=== PATIENT | female | born 1985 | race Caucasian/White ===

== ENCOUNTER → 2016-10-17 | Outpatient (CLI) | payer OTHER ==
[~2016-10-17] MED LIST: MULT-506 PO
[2016-10-17 09:53] LABS: ALT/SGPT 24 U/L (12-78); BLOOD UREA NITROGEN 12 mg/dl (7-18); BUN/CREATININE RATIO 17.8 (10-20); CALCIUM 8.9 mg/dl (8.5-10.1); CARBON DIOXIDE 28 mmol/L (21-32); CHLORIDE 106 mmol/L (98-107); CHOLESTEROL 171 mg/dl (0-200); CREATININE 0.67 mg/dl (0.60-1.20); GLUCOSE 83 mg/dl (70-99); POTASSIUM 4.2 mmol/L (3.5-5.1); SODIUM 139 mmol/L (136-145); TRIGLYCERIDES 56 mg/dl (0-150); VERY LOW DENSITY LIPOPROT CALC 11 mg/dl
[2016-10-17 09:56] LABS: ALB/GLOB RATIO 1.1 (0.9-2); ALKALINE PHOSPHATASE 79 U/L (45-117); AST/SGOT 14 U/L (15-37); CHOLESTEROL/HDL RATIO 2.6; HDL CHOLESTEROL 67 mg/dl; LDL CHOLESTEROL CALCULATED 93 mg/dl
== END | disposition home or self-care (01) ==
LOC: C.LAB 07:43
PROVIDERS: ATTEND Family Medicine
DX: Z13.220 Encounter for screening for lipoid disorders (principal); Z13.228 Encounter for screening for other metabolic disorders

== ENCOUNTER → 2016-12-27 | Outpatient (CLI) | payer OTHER | END | disposition home or self-care (01) | LOC: C.PAPS 15:23 | PROVIDERS: ATTEND Obstetrics & Gynecology | DX: Z12.4 Encounter for screening for malignant neoplasm of cervix (principal) ==

== ENCOUNTER → 2017-04-15 | Outpatient (CLI) | payer OTHER | END | disposition home or self-care (01) | LOC: C.LABSPEC 14:32 | PROVIDERS: ATTEND Obstetrics & Gynecology | DX: Z34.81 Encounter for supervision of other normal pregnancy, first trimester (principal); Z3A.00 Weeks of gestation of pregnancy not specified ==

== ENCOUNTER → 2017-06-17 | Outpatient (CLI) | payer OTHER ==
[2017-06-17 10:09] LABS: BASO % 0.1 %; BASO ABS # 0.01 K/uL (0-0.2); HEMATOCRIT 36.7 % (37-47); HEMOGLOBIN 12.6 g/dL (12.0-16.0); IG# 0.08 K/uL (0.00-0.02); LYMPH % 15.2 %; LYMPH ABS # 1.55 K/uL (1.2-3.4); MEAN CELL VOLUME 89.3 fL (80-100); MEAN CORPUSCULAR HEMOGLOBIN 30.7 pg (25-34); MEAN CORPUSCULAR HGB CONC 34.3 g/dl (32-36); MEAN PLATELET VOLUME 12.2 fL (7.4-10.4); MONO % 4.1 %; MONO ABS # 0.42 K/uL (0.11-0.59); NEUT % 78.8 %; NEUT ABS # 8.07 K/uL (1.4-6.5); PLATELET COUNT 138 K/uL (130-400); RED CELL DISTRIBUTION WIDTH CV 13.2 % (11.5-14.5); WHITE BLOOD COUNT 10.23 K/uL (4.8-10.8)
== END | disposition home or self-care (01) ==
LOC: C.LAB 08:04
PROVIDERS: ATTEND Obstetrics & Gynecology
DX: Z34.82 Encounter for supervision of other normal pregnancy, second trimester (principal)

== ENCOUNTER 2017-07-17 11:35 | Inpatient (IN) | payer OTHER ==
[~2017-07-17] VITALS: Ht 162.6 cm; Wt 64.9 kg
[2017-07-17 11:40] VITALS: BP 144/83; PULSE 108; TEMP 37.3; O2SAT 98; Ht 162.6 cm; Wt 64.9 kg
[2017-07-17] MEDS ORDERED: MEPERIDINE HCL 50 MG/ML CARP ONE (12:06)
[2017-07-17] MEDS ORDERED: ONDANSETRON INJ 2 MG/ML 2 ML VIAL ONE (12:15)
[2017-07-17] MEDS ORDERED: HYDROCODONE/ACETAMIN 5/325MG TAB PO PRN ×3 (12:15)
[2017-07-17] MEDS ORDERED: MEPERIDINE HCL 50 MG/ML CARP IV PRN (12:15)
[2017-07-17] MEDS: ONDANSETRON INJ 2 MG/ML 2 ML VIAL IV PRN (12:18)
--- NOTE | 2017-07-17 12:23 | HISTORY & PHYSICAL EXAMINATION ---
DATE OF ADMISSION: 07/17/2017 CHIEF COMPLAINT: Right lower quadrant pain, intrauterine , 20 weeks 4 days. HISTORY OF PRESENT ILLNESS: The patient is a 31-year-old 3, para 1. She has had 1 previous spontaneous AB. Her up until this time has been uneventful. Her due date is on 12/01/2017. She had a prior delivery in 2016, a girl, spontaneous vaginal delivery, 8 pound 15 ounces. was complicated by a degenerated fibroid which caused severe pain at about 19 weeks and required pain medicines for several days and then eventually resolved on its own. Present has been uneventful up until this point in time. She has been eating well, having bowel movement, having no significant loss of appetite, has started with right lower quadrant pain which she states she can localize right to the fibroid, it has been getting worse over the past 2 days and presently it is severe. She is having difficulty walking or standing. PAST MEDICAL HISTORY: She has a 2-year-old girl, in good health. ALLERGIES: SHE IS ALLERGIC TO LEVAQUIN WHICH CAUSES HER VOMITING. PAST SURGICAL HISTORY: She had a jaw surgery in 2001. MEDICAL HISTORY: No history of rheumatic fever, heart disease, heart murmur, diabetes, tuberculosis. SOCIAL HISTORY: No smoking, no alcohol intake. Works as a nurse at [employer]. FAMILY HISTORY: Mother is 63, in good health. Father 69, has high blood pressure. One brother and one sister, in good health. REVIEW OF SYSTEMS: Occasional migraines. No symptoms of frequent or severe ear infections, nosebleeds, or sore throat. PHYSICAL EXAMINATION: GENERAL: A well developed, well-nourished 31-year-old white female, in distress. EYES: Conjunctivae are pink. Sclerae are white. No jaundice. HEART: Heart had regular rhythm. S1, S2 were normal. LUNGS: Clear to auscultation and percussion. PELVIC: Uterus was tender, especially right lower quadrant in the area of the fibroid. There was no flank tenderness. MUSCULOSKELETAL: No CVA or calf tenderness. IMPRESSIONS OF THIS CASE: Status post jaw surgery, intrauterine , 20 weeks 4 days, and symptomatic degenerating fibroid.
[2017-07-17] MEDS: SODIUM CHLORIDE 0.9% 1000ML 1,000 ML IV SCH ×2 (12:24→19:41)
[2017-07-17] MEDS ORDERED: DOCUSATE SODIUM 100 MG CAP PO PRN (12:30)
[2017-07-17 12:49] LABS: HEMATOCRIT 36.9 % (37-47); HEMOGLOBIN 12.9 g/dL (12.0-16.0); MEAN CELL VOLUME 89.1 fL (80-100); MEAN CORPUSCULAR HEMOGLOBIN 31.2 pg (25-34); PLATELET COUNT 154 K/uL (130-400); RED CELL DISTRIBUTION WIDTH CV 13.1 % (11.5-14.5); RED CELL DISTRIBUTION WIDTH SD 42.5 fL (36.4-46.3); WHITE BLOOD COUNT 15.75 K/uL (4.8-10.8)
[2017-07-17 12:52] LABS: ALBUMIN 2.7 gm/dl (3.4-5.0); AST/SGOT 12 U/L (15-37); BLOOD UREA NITROGEN 5 mg/dl (7-18); CALCIUM 7.9 mg/dl (8.5-10.1); CARBON DIOXIDE 21 mmol/L (21-32); GLUCOSE 96 mg/dl (70-99); POTASSIUM 3.6 mmol/L (3.5-5.1); SODIUM 136 mmol/L (136-145)
[2017-07-17 12:55] LABS: ALKALINE PHOSPHATASE 70 U/L (45-117); ALT/SGPT 13 U/L (12-78); TOTAL PROTEIN 6.8 gm/dl (6.4-8.2)
[2017-07-17] MEDS: OXYCODONE/ACETAMINOPHEN 5-325 TAB PO PRN ×3 (13:13→23:14)
--- NOTE | 2017-07-17 13:47 | DIAGNOSTIC IMAGING REPORT ---
LIMITED (US) CLINICAL HISTORY: 20 week fibroids fibroid TECHNIQUE: Ultrasound COMPARISON STUDY: 03/16/2015 FINDINGS: Single, viable intrauterine . Maternal cervix measures 3.5 cm. Right anterior uterine fibroid measuring 4.3 x 3.7 cm. This is slightly increased compared to the prior exam. No additional fibroids are identified. IMPRESSION: 1. Right anterior uterine fibroid slightly increased in size from the prior study. 2. Current dimensions of 4.3 x 3.7 cm. 3. Maternal cervix measures 3.5 cm in length. 4. Single, viable intrauterine . The above report was generated using voice recognition software. It may contain grammatical, syntax or spelling errors. Electronically signed by: Bhanu Pop M.D. 07/17/2017 1:46 PM Dictated Date/Time: 07/17/2017 1:44 PM
[2017-07-17 16:55] VITALS: O2SAT 100
[2017-07-17] MEDS ORDERED: NURSING VERBAL MED ORDER ONE (17:45)
[2017-07-17] MEDS: CALCIUM CARBONATE 500 MG CHEWABLE PO PRN (18:33)
[2017-07-17 19:35] VITALS: BP 107/67; PULSE 76; TEMP 36.5; O2SAT 100
[2017-07-17] MEDS: DOCUSATE SODIUM 100 MG CAP PO PRN (19:41)
[2017-07-17 23:00] VITALS: BP 111/70; PULSE 76; TEMP 37; O2SAT 99
[2017-07-18] MEDS: SODIUM CHLORIDE 0.9% 1000ML 1,000 ML IV SCH ×2 (03:09→10:13)
[2017-07-18 03:10] VITALS: BP 99/65; PULSE 85; TEMP 37.1; O2SAT 97
[2017-07-18] MEDS: OXYCODONE/ACETAMINOPHEN 5-325 TAB PO PRN ×6 (03:21→23:51)
[2017-07-18 06:27] LABS: HEMATOCRIT 31.8 % (37-47); MEAN CELL VOLUME 90.1 fL (80-100); MEAN CORPUSCULAR HEMOGLOBIN 31.2 pg (25-34); MEAN CORPUSCULAR HGB CONC 34.6 g/dl (32-36); MEAN PLATELET VOLUME 11.9 fL (7.4-10.4); PLATELET COUNT 122 K/uL (130-400); RED CELL DISTRIBUTION WIDTH CV 13.3 % (11.5-14.5); RED CELL DISTRIBUTION WIDTH SD 43.2 fL (36.4-46.3); WHITE BLOOD COUNT 10.62 K/uL (4.8-10.8)
[2017-07-18 07:20] VITALS: BP 113/74; PULSE 94; TEMP 36.6; O2SAT 100
[2017-07-18] MEDS: DOCUSATE SODIUM 100 MG CAP PO PRN ×2 (07:20→19:28)
[2017-07-18] MEDS: ONDANSETRON INJ 2 MG/ML 2 ML VIAL IV PRN ×3 (08:38→20:34)
--- NOTE | 2017-07-18 09:13 | Progress Note ---
Subjective Jul 18, 2017. Subjective conversation w/ patient Ambulation: limited ambulation Voiding: no voiding problems Passing Gas: Yes Diet Tolerance: Nausea/Vomiting Review of Systems Constitutional: + fever Objective Vital Signs Date Time Temp Pulse Resp B/P (MAP) Pulse Ox O2 Delivery O2 Flow Rate FiO2 07/18/17 07:20 36.6 94 18 113/74 (87) 100 Room Air 07/18/17 07:20 100 Room Air 07/18/17 03:10 37.1 85 16 99/65 (76) 97 Room Air 07/17/17 23:00 99 Room Air 07/17/17 23:00 37.0 76 18 111/70 (84) 99 Room Air 07/17/17 19:35 36.5 76 18 107/67 (80) 100 Room Air 07/17/17 16:55 100 Room Air 07/17/17 11:40 37.3 108 20 144/83 98 Room Air Physical Exam General Appearance: moderate distress Abdomen: + tenderness Extremities: no pedal edema, no calf tenderness Laboratory Results Last 24 Hours Test 07/17/17 12:20 07/17/17 14:40 07/18/17 06:00 White Blood Count 15.75 K/uL 10.62 K/uL Red Blood Count 4.14 M/uL 3.53 M/uL Hemoglobin 12.9 g/dL 11.0 g/dL Hematocrit 36.9 % 31.8 % Mean Corpuscular Volume 89.1 fL 90.1 fL Mean Corpuscular Hemoglobin 31.2 pg 31.2 pg Mean Corpuscular Hemoglobin Concent 35.0 g/dl 34.6 g/dl RDW Standard Deviation 42.5 fL 43.2 fL RDW Coefficient of Variation 13.1 % 13.3 % Platelet Count 154 K/uL 122 K/uL Mean Platelet Volume 12.0 fL 11.9 fL Sodium Level 136 mmol/L Potassium Level 3.6 mmol/L Chloride Level 108 mmol/L Carbon Dioxide Level 21 mmol/L Anion Gap 7.0 mmol/L Blood Urea Nitrogen 5 mg/dl Creatinine 0.40 mg/dl Estimated GFR () > 150.0 Estimated GFR (Non- 138.8 BUN/Creatinine Ratio 12.4 Random Glucose 96 mg/dl Calcium Level 7.9 mg/dl Total Bilirubin 0.2 mg/dl Direct Bilirubin < 0.1 mg/dl Aspartate Amino Transf (AST/SGOT) 12 U/L Alanine Aminotransferase (ALT/SGPT) 13 U/L Alkaline Phosphatase 70 U/L Total Protein 6.8 gm/dl Albumin 2.7 gm/dl Globulin 4.1 gm/dl Albumin/Globulin Ratio 0.7 Urine Color DK YELLOW Urine Appearance CLOUDY Urine pH 6.0 Urine Specific [place] 1.039 Urine Protein 2+ Urine Glucose (UA) TRACE Urine Ketones 1+ Urine Occult Blood 2+ Urine Nitrite NEG Urine Bilirubin NEG Urine Urobilinogen NEG Urine Leukocyte Esterase NEG Urine WBC (Auto) 1-5 /hpf Urine RBC (Auto) >30 /hpf Urine Hyaline Casts (Auto) 10-30 /lpf Urine Epithelial Cells (Auto) >30 /lpf Urine Bacteria (Auto) NEG Urine Renal Epithelial Cells 0-5 /lpf Assessment and Plan Problem List Medical Problems: (1) Migraine Status: Chronic Continue Routine Care: unable to control pain at this time
[2017-07-18] MEDS: CALCIUM CARBONATE 500 MG CHEWABLE PO PRN (10:29)
[2017-07-18 11:20] VITALS: BP 121/79; PULSE 93; TEMP 36.9; O2SAT 98
[2017-07-18] MEDS ORDERED: NURSING VERBAL MED ORDER ONE ×2 (14:15→20:00)
[2017-07-18] MEDS ORDERED: OXYCODONE/ACETAMINOPHEN 5-325 TAB PO PRN (14:45)
[2017-07-18 15:20] VITALS: BP 103/68; PULSE 79; TEMP 37.3; O2SAT 100
[2017-07-18 19:50] VITALS: BP 112/74; PULSE 95; TEMP 37.4; O2SAT 100
[2017-07-18] MEDS ORDERED: MAGNESIUM HYDROXIDE SUSP 30 ML UDC PO PRN (20:00)
[2017-07-18] MEDS ORDERED: SODIUM CHLORIDE 0.9% 1000ML 1,000 ML IV SCH (20:00)
[2017-07-18] MEDS ORDERED: BISACODYL 5 MG TABEC PO PRN (20:00)
[2017-07-18 23:40] VITALS: BP 122/83; PULSE 95; TEMP 36.8; O2SAT 100
[2017-07-19] MEDS: ONDANSETRON INJ 2 MG/ML 2 ML VIAL IV PRN (02:27)
[2017-07-19] MEDS: OXYCODONE/ACETAMINOPHEN 5-325 TAB PO PRN ×2 (04:01→08:32)
[2017-07-19 04:05] VITALS: BP 123/80; PULSE 92; TEMP 37.1
[2017-07-19 07:30] VITALS: BP 110/69; PULSE 92; TEMP 37.2; O2SAT 100
[2017-07-19] MEDS ORDERED: NURSING VERBAL MED ORDER ONE (07:30)
[2017-07-19] MEDS ORDERED: ONDANSETRON 8MG OD TAB PO PRN (07:45)
[2017-07-19] MEDS: DOCUSATE SODIUM 100 MG CAP PO PRN (08:34)
--- NOTE | 2017-07-19 09:14 | Progress Note ---
Subjective Jul 19, 2017. Subjective conversation w/ patient Ambulation: ambulating normally Voiding: no voiding problems Passing Gas: Yes Diet Tolerance: Regular Diet Review of Systems Constitutional: + fever Objective Vital Signs Date Time Temp Pulse Resp B/P (MAP) Pulse Ox O2 Delivery O2 Flow Rate FiO2 07/19/17 07:30 100 Room Air 07/19/17 07:30 37.2 92 18 110/69 (83) 100 Room Air 07/19/17 04:05 37.1 92 18 123/80 (94) Room Air 07/18/17 23:40 100 Room Air 07/18/17 23:40 36.8 95 18 122/83 (96) 100 Room Air 07/18/17 19:50 37.4 95 18 112/74 (87) 100 Room Air 07/18/17 15:20 100 Room Air 07/18/17 15:20 37.3 79 18 103/68 (80) 100 Room Air 07/18/17 11:20 36.9 93 18 121/79 (93) 98 Room Air Physical Exam General Appearance: WELL-APPEARING Abdomen: non tender Extremities: no pedal edema, no calf tenderness Assessment and Plan Problem List Medical Problems: (1) Migraine Status: Chronic Continue Routine Care: pain under control with percocet
--- NOTE | 2017-07-19 09:20 | Discharge Instructions ---
Discharge Instructions Date of Service Jul 19, 2017. Admission Reason for Admission: Right Lower Quad Pain-- 20WEEKS Discharge Discharge Diagnosis / Problem: infarcted fibroid Discharge Goals Goal(s): Continuing OB care Activity Recommendations Activity Limitations: as noted below return for routine care . Instructions / Follow-Up Instructions / Follow-Up return for routine care Current Hospital Diet Patient's current hospital diet: Regular OB Diet Discharge Diet Recommended Diet: Regular Diet Pending Studies Studies pending at discharge: no Medical Emergencies . Who to Call and When: Medical Emergencies: If at any time you feel your situation is an emergency, please call 911 immediately. . Non-Emergent Contact Non-Emergency issues call your: Wiring Inspector Call Non-Emergent contact if: temperature is above 100.5 . . "Provider Documentation" section prepared by Gamal Orozco. .
[2017-07-19] MEDS: CALCIUM CARBONATE 500 MG CHEWABLE PO PRN (09:23)
[2017-07-19 09:43] VITALS: BP 110/69; PULSE 92; TEMP 37.2; O2SAT 100
--- NOTE | 2017-07-19 10:15 | DISCHARGE SUMMARY ---
The patient is a 31-year-old 3, para 1, was admitted with acute abdominal pain associated with vomiting. She has 20 weeks 4 days gestation and she had a known fibroid in the right lower quadrant, which had given her pain to her previous . She has several day history of pain, which was uncontrollable at home along with nausea and vomiting. She was admitted to the hospital. She was evaluated with routine blood work, which showed on admission an elevated white count, which later resolved. The diagnosis of infarcted fibroid was confirmed by abdominal ultrasound, which showed the presence and positioning of the fibroid and also the fact that it was extremely tender to touch. At that time, the ultrasound was done and showed a cervical length of over 3.5 cm with no funneling. The patient was admitted in acute pain associated with vomiting and unable to take any fluids. She was hydrated with IVs and also given Demerol along with Zofran to prevent the nausea. She required IV pain medicine until the day of discharge when she was able to be switch to p.o. Percocet along with Zofran at the time of discharge, it was the first day that she was able to tolerate the diet without vomiting and as previously stated, her pain was managed with p.o. Percocet and Zofran and also the intensity of the pain had decreased over the hospitalization. At the time of discharge, she was ambulating well, eating well. The pain was controlled.
== END 2017-07-19 10:15 | disposition home or self-care (01) | DRG 781 ==
LOC: C.MS4N 11:51 → OBSVTOIN 07-18 12:53
PROVIDERS: ADMIT Obstetrics & Gynecology; ATTEND Obstetrics & Gynecology
DX: O34.12 Maternal care for benign tumor of corpus uteri, second trimester (principal); O21.8 Other vomiting complicating pregnancy; Z3A.20 20 weeks gestation of pregnancy; Z88.1 Allergy status to other antibiotic agents; Z98.890 Other specified postprocedural states

== ENCOUNTER → 2017-11-05 | Outpatient (CLI) | payer OTHER | END | disposition home or self-care (01) | LOC: C.LABSPEC 15:07 | PROVIDERS: ATTEND Obstetrics & Gynecology | DX: Z34.83 Encounter for supervision of other normal pregnancy, third trimester (principal) ==